=== PATIENT | female | born 1985 | race Caucasian/White ===

== ENCOUNTER 2018-04-21 17:05 | Emergency (ER) | payer BC, OTHER ==
[~2018-04-21] VITALS: Ht 154.9 cm; Wt 60.2 kg
[~2018-04-21 17:05] MED LIST: FOLI0.4T2 PO; IBUP-1222 PO; LAMO1000 PO; OXYC-302 PO; PREN1TAB60 PO
[2018-04-21] MEDS ORDERED: LIDOCAINE-MPF 1%, 5ML INFIL ONE (18:00)
[2018-04-21] MEDS ORDERED: AMPICILLIN/SULBACTAM 3 GM IM ONE (19:30)
[2018-04-21] MEDS ORDERED: AMPICILLIN/SULBACTAM 3 GM in SODIUM CHLORIDE 0.9% 100 ML IV ONE (19:30)
[2018-04-21] MEDS ORDERED: AMPICILLIN/SULBACTAM 3 GM in SODIUM CHLORIDE 0.9% 100 ML IVPB ONE (19:30)
[2018-04-21] MEDS ORDERED: BACITRACIN ZINC OINT 500U/GM, 0.9 GM ONE ×2 (19:40→19:46)
[2018-04-21 20:35] VITALS: BP 122/82
[2018-04-21] MEDS ORDERED: IBUPROFEN 200 MG TABLET ONE (20:38)
[2018-04-21] MEDS ORDERED: IBUPROFEN 200 MG TABLET PO ONE (21:00)
== END 2018-04-21 20:44 | disposition home or self-care (01) ==
LOC: ED 20:38
DX: L02.511 Cutaneous abscess of right hand (principal)
CPT/HCPCS: 10060; 96365; 99284; J0295

== ENCOUNTER 2021-03-27 10:29 | Day surgery (SDC) | payer OTHER ==
[2021-03-26 11:56] LABS: BASOPHILS % (AUTO) 1 % (0-1); EOSINOPHILS % (AUTO) 1 % (1-7); LYMPHOCYTES % (AUTO) 47 % (22-44); MEAN PLATELET VOLUME 8.7 fL (7.4-10.4); MONOCYTES % (AUTO) 8 % (2-9); NEUTROPHILS % (AUTO) 44 % (42-75); PLATELET COUNT 217 x10^3/uL (130-400); RED CELL DISTRIBUTION WIDTH 12.6 % (9.6-15.2)
[2021-03-26 12:04] LABS: ANION GAP 6 mmol/L (5-15); CHLORIDE 106 mmol/L (98-107); CREATININE 0.55 mg/dL (0.55-1.02)
[~2021-03-27] VITALS: Ht 156.2 cm; Wt 60.2 kg
[~2021-03-27 10:29] MED LIST changes: -FOLI0.4T2 PO; +FOLI0.4T5 PO; -OXYC-302 PO; +OXYC1TAB12 PO; +PSYL368P33 PO
[2021-03-27] MEDS ORDERED: FENTANYL PF 250 MCG/5ML ONE (10:43)
[2021-03-27] MEDS ORDERED: MIDAZOLAM 1 MG/ML, 2ML ONE (10:43)
[2021-03-27 10:58] VITALS: BP 104/69
[2021-03-27] MEDS ORDERED: CHLORHEXIDINE 15 ML UDC PO ONE (11:00)
[2021-03-27] MEDS ORDERED: LACTATED RINGERS 1,000 ML IV SCH (11:00)
[2021-03-27] MEDS ORDERED: BUPIVACAINE/PF 0.25% ONE (11:26)
[2021-03-27] MEDS ORDERED: INDIGO CARMINE 0.8%, 5ML ONE (11:27)
[2021-03-27] MEDS ORDERED: EPINEPHRINE 1 MG/ML, 1ML ONE (11:27)
[2021-03-27] MEDS ORDERED: SCOPOLAMINE 1MG PATCH TD ONE (12:00)
[2021-03-27] MEDS ORDERED: MEPERIDINE/PF 25MG/0.5ML IVPush PRN (12:00)
[2021-03-27] MEDS ORDERED: FENTANYL PF 100 MCG/2ML IV PRN (12:00)
[2021-03-27] MEDS ORDERED: LABETALOL 5MG/ML, 20ML IV PRN (12:00)
[2021-03-27] MEDS ORDERED: OXYcodone 5 MG/5 ML ORAL.SOL UDC PO PRN (12:00)
[2021-03-27] MEDS ORDERED: morphine SULFATE 10 MG/ML, 1ML IVPush PRN (12:00)
[2021-03-27] MEDS ORDERED: PROMETHAZINE 25 MG/ML, 1ML IVPush PRN (12:00)
[2021-03-27] MEDS ORDERED: HALOPERIDOL 5 MG/ML IV PRN (12:00)
[2021-03-27] MEDS ORDERED: ACETAMINOPHEN 325 MG TABLET PO PRN (12:00)
[2021-03-27] MEDS ORDERED: hydrALAzine 20 MG/ML, 1ML IV PRN (12:00)
[2021-03-27] MEDS ORDERED: HYDROmorphone 1 MG/ML, 1ML INJ IVPush PRN (12:00)
[2021-03-27] MEDS ORDERED: PROPOFOL 10 MG/ML, 20ML ONE (12:43)
[2021-03-27] MEDS ORDERED: KETOROLAC 30 MG/1 ML ONE (12:43)
[2021-03-27] MEDS ORDERED: ROCURONIUM 10MG/ML,5ML ONE (12:43)
[2021-03-27] MEDS ORDERED: CEFAZOLIN 1,000 MG ONE (12:43)
[2021-03-27] MEDS ORDERED: NEOSTIGMINE 1 MG/ML, 10ML ONE (12:43)
[2021-03-27] MEDS ORDERED: GLYCOPYRROLATE 0.2MG/1ML, 5ML ONE (12:43)
[2021-03-27] MEDS ORDERED: ONDANSETRON 2MG/ML, 2ML ONE (12:43)
[2021-03-27] MEDS ORDERED: DEXAMETHASONE 4 MG/ML, 1ML ONE (12:43)
[2021-03-27] MEDS ORDERED: FENTANYL PF 100 MCG/2ML ONE ×2 (13:18→14:15)
[2021-03-27] MEDS ORDERED: MEPERIDINE/PF 25MG/ML,1ML ONE (14:15)
[2021-03-27] MEDS ORDERED: PROMETHAZINE 25 MG/ML, 1ML ONE (14:15)
== END 2021-03-27 18:15 | disposition home or self-care (01) ==
LOC: OUT 10:29
PROVIDERS: ATTEND Obstetrics & Gynecology
DX: R10.2 Pelvic and perineal pain (principal); G89.29 Other chronic pain; D25.1 Intramural leiomyoma of uterus; N72 Inflammatory disease of cervix uteri; N83.8 Other noninflammatory disorders of ovary, fallopian tube and broad ligament; N94.10 Unspecified dyspareunia; G40.909 Epilepsy, unspecified, not intractable, without status epilepticus; G43.109 Migraine with aura, not intractable, without status migrainosus; Z20.822 Contact with and (suspected) exposure to COVID-19; Z97.5 Presence of (intrauterine) contraceptive device; Z98.890 Other specified postprocedural states
CPT/HCPCS: 36415; 58552; 80048; 84702; 85025; 88307; J0171; J0690; J1100; J1885; J2175; J2250; J2405; J2550; J2704; J2710; J3010; J7120; U0003; U0005